=== PATIENT | female | born 1955 | race Caucasian/White ===

== ENCOUNTER 2021-12-02 22:04 | Emergency (ER) | payer MEDICARE ==
[2021-12-02] MEDS ORDERED: Sodium Chloride 0.9% 10 ML Syringe FLUSH PRN (22:07)
[2021-12-02] MEDS ORDERED: Furosemide 40 MG/4 ML VIAL IVPUSH ONE (22:28)
[2021-12-02] MEDS ORDERED: Metolazone 2.5 MG Tab PO STA (22:28)
== END 2021-12-03 00:02 ==
LOC: FB.ED 22:04
DX: I44.7 Left bundle-branch block, unspecified (principal); I50.9 Heart failure, unspecified; E03.9 Hypothyroidism, unspecified; E78.00 Pure hypercholesterolemia, unspecified; Z79.899 Other long term (current) drug therapy; Z20.822 Contact with and (suspected) exposure to COVID-19
CPT/HCPCS: 36415; 71045; 80053; 83880; 84443; 84484; 85025; 85379; 85610; 85730; 93005; 93010; 96374; 99283; 99285-25; A9270-GY; J1940; U0002